=== PATIENT | female | born 1990 | race Caucasian/White ===

== ENCOUNTER 2021-08-17 20:22 | Emergency (ER) | payer OTHER ==
[2021-08-17] MEDS ORDERED: Sodium Chloride 0.9% 10 ML Syringe FLUSH PRN (20:38)
[2021-08-17 21:37] LABS: ANION GAP 14.1 mmol/L (5-15); CHLORIDE,CL 103 mmol/L (98-107); SODIUM,NA 137 mmol/L (136-145)
== END 2021-08-17 22:20 ==
LOC: KA.ED 20:22
DX: O99.891 Other specified diseases and conditions complicating pregnancy (principal); R06.02 Shortness of breath; R79.89 Other specified abnormal findings of blood chemistry; Z3A.30 30 weeks gestation of pregnancy
CPT/HCPCS: 36415; 80053; 84484; 85025; 85379; 93005; 93010; 99284; 99285-25